=== PATIENT | female | born 1950 | race Caucasian/White ===

== ENCOUNTER → 2017-05-21 | Outpatient (CLI) | payer OTHER ==
[~2017-05-21] MED LIST: ASPI-663 PO; ATOR20TA22 PO; BACDS PO; CALC1TAB32 PO; FLU45SYR25 IM ONLY; HCTZ25 PO; IBAN150T6 PO; IBU200 PO; LISI-362 PO; LISI20TA29 PO; SERT-184 PO; SIMV-42 PO; SIMV10TA98 PO; VENL75TA PO; ZOST19404 SQ
--- NOTE | 2017-05-22 08:18 | RADIOLOGY IMAGING REPORT ---
FACILITY: [facility] - [place] PATIENT NAME: ANEL CYR : [id number] MR: [id number] V: [id number] EXAM DATE: ORDERING PHYSICIAN: AWAIS MORGAN TECHNOLOGIST: Milagro Mckeon PROCEDURE:BILATERAL DIGITAL SCREENING MAMMOGRAM WITH CAD ASSISTED INTERPRETATION & 3D TOMOSYNTHESIS COMPARISON:Prior mammograms 02/01/16, 11/25/14, 09/21/11, 09/06/10. INDICATIONS:SCREENING FINDINGS: Moderately dense heterogeneous fibroglandular tissue is seen throughout the breasts. The parenchymal pattern has remained stable allowing for difference in mammographic technique & patient positioning. There is no evidence of malignant appearing mass, malignant appearing calcifications or other secondary sign of malignancy in either breast. DIAGNOSTIC CATEGORY 2--BENIGN FINDING. RECOMMENDATIONS: ROUTINE MAMMOGRAM AND CLINICAL EVALUATION. IMPRESSION: BIRADS 2: Benign finding No significant abnormality is seen. Dictated by: Marsha Hickman M.D. on 05/21/2017 at 16:17 Transcribed by: JOCELIN on 05/21/2017 at 16:27 Approved by: Marsha Hickman M.D. on 05/22/2017 at 8:17 [facility]
== END ==
LOC: MAMO 02:26
PROVIDERS: ATTEND Internal Medicine
DX: Z12.31 Encounter for screening mammogram for malignant neoplasm of breast (principal)
CPT/HCPCS: 77063; 77067

== ENCOUNTER → 2017-05-30 | Outpatient (CLI) | payer OTHER ==
[2017-05-30 14:53] LABS: LDL CHOLESTEROL 93 mg/dl
== END ==
LOC: LAB 11:01
PROVIDERS: ATTEND Internal Medicine
DX: I10 Essential (primary) hypertension (principal)
CPT/HCPCS: 36415; 82040; 82247; 82310; 82374; 82435; 82465; 82565; 82947; 83718; 84075; 84132; 84155; 84295; 84450; 84460; 84478; 84520

== ENCOUNTER → 2018-06-11 | Outpatient (CLI) | payer MEDICARE ==
[~2018-06-11] MED LIST changes: +ATOR20TA65 PO; +IBAN150T16 PO; +OMEP40CA48 PO; +PNEU0.5D3 IM
[2018-06-11 13:32] LABS: PLATELET COUNT, AUTOMATED 368 K/uL (150-450)
[2018-06-11 13:50] LABS: LDL CHOLESTEROL 150 mg/dl
== END ==
LOC: LAB 12:59
PROVIDERS: ATTEND Emergency Medicine
DX: E78.5 Hyperlipidemia, unspecified (principal); I10 Essential (primary) hypertension
CPT/HCPCS: 36415; 82040; 82247; 82306; 82310; 82374; 82435; 82465; 82565; 82607; 82947; 83718; 84075; 84132; 84155; 84295; 84443; 84450; 84460; 84478; 84520; 85025

== ENCOUNTER → 2018-06-30 | Outpatient (CLI) | payer MEDICARE ==
--- NOTE | 2018-06-30 11:23 | RADIOLOGY IMAGING REPORT ---
FACILITY: [facility] PATIENT NAME: Sejal Momin : 1950 MR: [id number] V: [id number] EXAM DATE: ORDERING PHYSICIAN: DESTIN MONTGOMERY TECHNOLOGIST: Location[place] [facility] [place] Patient: Sejal Momin : 1950 Visit/Account:[id number] Date of Sevice: 06/30/2018 DEXA Scan Clinical history: Osteoporosis screening. Comparison: 11/25/2014. LUMBAR SPINE: Bone mineral density (BMD) measured in the lumbar spine correlates with a T-score of -2.7 and a Z-sco re of -1.2 which is osteoporosis as defined by the World Health Organization. The corresponding risk of fracture in the lumbar spine is increased compared with a young adult reference population. Lumb ar spine bone density has decreased by 9.7% compared to previous. Note that degenerative changes may falsely increase bone density. LEFT FEMORAL NECK: Bone mineral density (BMD) measured in the femoral neck correlates with a T-score of -1.6 and a Z-sco re of -0.2 which is osteopenia as defined by the World Health Organization. Bone mineral density (BMD) measured in the femoral neck region is 0.811 g/cm2. LEFT TOTAL HIP: Total hip bone mineral density (BMD) correlates with a T-score of -2.1 and a Z-score of -1.0 which is osteopenia as defined by the World Health Organization. Total hip bone density has decreased by 3.7 % compared to previous. The corresponding risk of fracture in the hip is increased compared with a young adult reference popu [facility]. IMPRESSION: 1. Lumbar spine: Osteoporosis. Lumbar spine bone density has decreased by 9.7% compared to previou s. 2. Left femoral neck: Osteopenia. 3. Left femoral neck: Bone Mineral Density is 0.811 g/cm2. 4. Left total hip: Osteopenia. Total hip bone density has decreased by 3.7% compared to previous. FRAX WHO Fracture Risk Assessment Tool link: <http://www.shef.ac.uk/FRAX/tool.jsp?locationValue=9> PLEASE NOTE: 1) The World Health Organization defines low BMD as follows: T-score Normal > -1 Osteopenia < -1 and > -2.5 Osteoporosis < -2.5 without fractures Established osteoporosis < -2.5 with fractures 2) In general, you may wish to consider: Diagnosis Treatment Follow-up DEXA Normal BMD Prevention 2-3 years Osteopenia Prevention/therapy 1-2 years Osteoporosis Therapy Yearly 3) Fracture risk estimated from the T-score is more accurate for vertebral fractures (often spontane ous) than for hip fractures. Report Dictated By: Joseph Monk MD at 06/30/2018 11:16 AM Report E-Signed By: Joseph Monk MD at 06/30/2018 11:19 AM WSN:[email or web address]
--- NOTE | 2018-07-01 10:19 | RADIOLOGY IMAGING REPORT ---
FACILITY: [facility] - [place] PATIENT NAME: ANEL CYR : [id number] MR: [id number] V: [id number] EXAM DATE: [id number] ORDERING PHYSICIAN: DESTIN MONTGOMERY TECHNOLOGIST: Milagro Mckeon PROCEDURE: BILATERAL DIGITAL SCREENING MAMMOGRAM WITH CAD ASSISTED INTERPRETATION & 3D TOMOSYNTHESIS REASON FOR STUDY: Screening COMPARISON: Priors. VIEWS OBTAINED: 2D & 3D full field CC & MLO. BREAST DENSITY: The breasts are heterogeneously dense. MAMMOGRAM FINDINGS: A few benign appearing calcifications are scattered bilaterally. IMPRESSION: BIRADS 1: Negative. DIAGNOSTIC CATEGORY 1--NEGATIVE. RECOMMENDATIONS: ROUTINE MAMMOGRAM AND CLINICAL EVALUATION IN 1 YEAR. Dictated by: Joseph Monk M.D. on 06/30/2018 at 14:32 Transcribed by: JOCELIN on 06/30/2018 at 14:42 Approved by: Marsha Hickman M.D. on 07/01/2018 at 10:18 [facility]
== END ==
LOC: MAMO 00:55
PROVIDERS: ATTEND Emergency Medicine
DX: Z12.31 Encounter for screening mammogram for malignant neoplasm of breast (principal); R92.1 Mammographic calcification found on diagnostic imaging of breast; M81.0 Age-related osteoporosis without current pathological fracture; M85.88 Other specified disorders of bone density and structure, other site
CPT/HCPCS: 77063; 77067; 77080

== ENCOUNTER → 2018-07-29 | Outpatient (CLI) | payer MEDICARE | LOC: LAB 13:26 | PROVIDERS: ATTEND Emergency Medicine | DX: M81.0 Age-related osteoporosis without current pathological fracture (principal) | CPT/HCPCS: 36415; 82310; 83970 ==